=== PATIENT | female | born 1985 | race Two or more races ===

== ENCOUNTER 2023-06-11 16:23 | Emergency (ER) | payer MEDICAID ==
[~2023-06-11] VITALS: Ht 149.9 cm; Wt 78.0 kg
[2023-06-11 16:32] VITALS: BP 120/82; PULSE 112; RESP 16; TEMP 97.7; O2SAT 97
[2023-06-11] MEDS ORDERED: IBUPROFEN 400MG TABLET PO ONE (18:30)
[2023-06-11] MEDS ORDERED: IBUP-2028 MT (18:38)
== END 2023-06-11 19:01 | disposition home or self-care (01) ==
LOC: ER 16:23
DX: M54.9 Dorsalgia, unspecified (principal); M54.2 Cervicalgia; V49.9XXA Car occupant (driver) (passenger) injured in unspecified traffic accident, initial encounter; Y93.89 Activity, other specified; Y92.89 Other specified places as the place of occurrence of the external cause; Y99.8 Other external cause status
CPT/HCPCS: 99282